=== PATIENT | male | born 1980 | race Caucasian/White ===

== ENCOUNTER → 2016-12-07 | Outpatient (CLI) | payer BC ==
[~2016-12-07] MED LIST: CIPRO 500MG TA500 MG PO; IBUPROFEN800 MG PO; MOBIC15 MG PO; MUSCLE RELAXER; PROTONIX40 MG PO; SEPTRA DS 800 M1 TAB PO; TESSALON PERLE100 MG PO; TYLENOL ES500 M1 PO; VICODIN 7.5/501 EACH PO
[2016-12-07 12:26] LABS: BUN 15 mg/dL (7-18)
[2016-12-07 12:35] LABS: GFR (ESTIMATED) 85 ML/MIN (>60)
== END ==
LOC: LAB 10:36
PROVIDERS: Nurse Practitioner Family
DX: E78.1 Pure hyperglyceridemia (principal)